=== PATIENT | male | born 1970 | race Caucasian/White ===

== ENCOUNTER 2020-05-11 08:46 | Observation (INO) | payer MEDICAID ==
[~2020-05-11] VITALS: Ht 162.6 cm; Wt 60.8 kg
[2020-05-11 09:06] LABS: *AMPHETAMINES SCREEN URINE NEGATIVE (NEGATIVE); *BARBITURATES SCREEN URINE NEGATIVE (NEGATIVE); *BENZODIAZEPINES SCREEN URINE NEGATIVE (NEGATIVE); CANNABINOID URINE SCREEN PRESUMTIVE POSITIVE (NEGATIVE); METHADONE URINE SCREEN NEGATIVE (NEGATIVE); OPIATES URINE SCREEN NEGATIVE (NEGATIVE); PHENCYCLIDINE URINE SCREEN NEGATIVE (NEGATIVE)
[2020-05-11 09:07] LABS: *COCAINE SCREEN URINE NEGATIVE (NEGATIVE)
[2020-05-11] MEDS ORDERED: [UNRECOGNIZED DRUG - REMARK] IV SCH ×4 (09:30)
[2020-05-11] MEDS ORDERED: LACTATED RINGERS 1,000 ML IV SCH (09:30)
[2020-05-11] MEDS ORDERED: IBUP-2028 PO (09:56)
[2020-05-11] MEDS ORDERED: HYDR-4001 PO (09:56)
[2020-05-11] MEDS ORDERED: THIA100T88 PO (09:56)
[2020-05-11] MEDS ORDERED: FOLI-43 PO (09:56)
[2020-05-11] MEDS ORDERED: GABA-531 PO (09:56)
[2020-05-11] MEDS ORDERED: KETOROLAC 30MG/ML VIAL IV PRN (10:00)
[2020-05-11] MEDS ORDERED: ONDANSETRON HCL 4MG/2ML INJ IV PRN ×2 (10:00→14:30)
[2020-05-11] MEDS ORDERED: ZOLPIDEM TARTRATE 5MG TABLET PO PRN (10:00)
[2020-05-11] MEDS ORDERED: ACETAMINOPHEN 325MG TABLET PO PRN (10:00)
[2020-05-11] MEDS ORDERED: HYDROCODONE/ACETAMINOPHEN 10/325MG TABLET PO PRN ×2 (10:00)
[2020-05-11] MEDS ORDERED: BUPIVACAINE HCL/PF 0.25% (2.5MG/ML) 10ML ONE (13:28)
[2020-05-11] MEDS ORDERED: MORPHINE SULFATE/PF 1MG/ML 10ML AMP ONE (13:28)
[2020-05-11] MEDS ORDERED: MEPERIDINE HCL/PF 25MG/ML CPJ IV PRN ×2 (14:30)
[2020-05-11] MEDS ORDERED: MORPHINE SULFATE 2 MG/ML CPJ (NOT FOR IM USE) IV PRN (14:30)
[2020-05-11] MEDS ORDERED: HYDROMORPHONE HCL/PF 2MG/ML CPJ IV PRN (14:30)
[2020-05-11] MEDS ORDERED: NALOXONE INJ IV PRN (14:45)
[2020-05-11] MEDS ORDERED: ONDANSETRON INJ IV PRN (14:45)
[2020-05-11] MEDS ORDERED: DIPHENHYDRAMINE INJ IV PRN (14:45)
[2020-05-11] MEDS ORDERED: SODIUM CHLORIDE 0.9% 1,000 ML IV ONE (15:00)
[2020-05-11] MEDS: LORAZEPAM 2MG/ML CPJ IV PRN (15:05)
[2020-05-11] MEDS ORDERED: FOLIC ACID 1 MG, THIAMINE HCL 100 MG, MVI, ADULT NO.1 10 ML in DEXTROSE 5% WATER 1,000 ML IV ONE ×4 (16:30)
[2020-05-11] MEDS: HYDROMORPHONE PCA 10MG/50ML IV PRN ×2 (18:00→19:10)
[2020-05-11 19:00] VITALS: BP 111/83
[2020-05-11] MEDS ORDERED: CEFAZOLIN 2,000 MG in DEXT 5% WATER 100 ML IV SCH (20:00)
[2020-05-12] VITALS: BP 134/94
[2020-05-12 04:00] VITALS: BP 135/94
[2020-05-12 08:00] VITALS: BP 137/92
[2020-05-12 12:00] VITALS: BP 130/75
[2020-05-12 14:48] VITALS: BP 130/75
== END 2020-05-12 15:00 | disposition home or self-care (01) ==
LOC: OR 08:46 → INTOOBSV 10:13 → 6EST 10:13
PROVIDERS: ADMIT Orthopaedic Surgery; ATTEND Orthopaedic Surgery
DX: S42.022A Displaced fracture of shaft of left clavicle, initial encounter for closed fracture (principal); Z20.828 Contact with and (suspected) exposure to other viral communicable diseases; D17.39 Benign lipomatous neoplasm of skin and subcutaneous tissue of other sites; S14.3XXA Injury of brachial plexus, initial encounter; F17.210 Nicotine dependence, cigarettes, uncomplicated; Z79.899 Other long term (current) drug therapy; G54.0 Brachial plexus disorders; Y93.55 Activity, bike riding; Y92.89 Other specified places as the place of occurrence of the external cause
CPT/HCPCS: 23075; 23515; 36415; 73000; 80305; 80320; 88305; 96365; 96366; 96368; 97166; G0378; J0690; J1170; J2060; J2175; J2274; J2405; J3411; J3490; J7060; J7070; J7120; G0480

== ENCOUNTER → 2020-05-11 | Outpatient (CLI) | payer MEDICAID ==
[~2020-05-11] MED LIST: BACITRACIN 50,000 UNITS/VIAL ONE; CEFAZOLIN SODIUM 1000MG/VIAL ONE; DEXAMETHASONE 4MG/ML 1ML VIAL ONE; FENTANYL CITRATE/PF 50MCG/ML 2ML VIAL ONE; FOLI-43 PO; GABA-531 PO; GLYCOPYRROLATE 0.2 MG/ML 2ML VIAL ONE; HYDR-4001 PO; HYDROMORPHONE HCL/PF 2MG/ML (OR) ONE; IBUP-2028 PO; METOCLOPRAMIDE HCL 10MG/2ML VIAL ONE; MIDAZOLAM HCL 2 MG/2 ML VIAL ONE; NEOSTIGMINE METHYLSULFATE 1MG/ML 10 ML VIAL ONE; ONDANSETRON HCL 4MG/2ML INJ ONE; PROPOFOL 200MG/20ML VIAL IV ONE; ROCURONIUM BROMIDE 10MG/ML VIAL 5ML IV ONE; SODIUM CHLORIDE 0.9% 10ML VIAL ONE; SUCCINYLCHOLINE CHLORIDE 200MG/10ML IV ONE; THIA100T88 PO; VANCOMYCIN HCL 1 GM/VIAL ONE
== END | disposition home or self-care (01) ==
LOC: LAB 05-10 14:37
PROVIDERS: ATTEND Orthopaedic Surgery
DX: S42.002A Fracture of unspecified part of left clavicle, initial encounter for closed fracture (principal); Z20.828 Contact with and (suspected) exposure to other viral communicable diseases; X58.XXXA Exposure to other specified factors, initial encounter; Y93.89 Activity, other specified; Y92.89 Other specified places as the place of occurrence of the external cause; Y99.8 Other external cause status
CPT/HCPCS: 87426; A4216; J0330; J0690; J1100; J1170; J2250; J2405; J2704; J2765; J3010; J3370; J3490; J2710